=== PATIENT | male | born 1955 | race African-American/Black ===

== ENCOUNTER 2016-08-01 13:06 | Outpatient (CLI) | payer OTHER, MEDICAID ==
[2016-06-24 04:42] VITALS: BP 150/59
== END 2016-08-01 13:07 ==
LOC: CARD 13:06
PROVIDERS: ATTEND Internal Medicine Cardiovascular Disease
DX: I27.2 Other secondary pulmonary hypertension (principal)
CPT/HCPCS: G0463

== ENCOUNTER 2016-08-28 21:52 | Emergency (ER) | payer OTHER ==
[2016-08-28 22:13] VITALS: BP 131/74
[2016-08-28] MEDS ORDERED: FLUTICASONE PROPIONATE 120 SPRAY/16 GR BOTTLE NS ONE (22:36)
[2016-08-28] MEDS: AZITHROMYCIN 250 MG TABLET PO ONE (22:37)
--- NOTE | 2016-08-28 22:43 | ED Physician Documentation ---
General Adult - HISTORIAN Historian: patient - HPI Stated Complaint: nasal congestion, cough Chief Complaint: General Adult Onset: days ago (3) Timing: still present Severity: moderate Further Comments: yes (Pt is a 61 yo male) - ROS CONST: other (malaise) EYES/ENT: nasal drainage, other (maxillary sinus pain, pressure) CVS/RESP: cough GI/: none MS/SKIN/LYMPH: none - PAST HX Past History: hypertension, other (HLD) Other History: diabetes Type 2, other (BINA) Allergies/Adverse Reactions: Allergies Allergy/AdvReac Type Severity Reaction Status Date / Time amoxicillin Allergy Verified 08/28/16 22:06 Home Medications: Ambulatory Orders Medication Instructions Recorded Aspirin [Jaky] 81 mg PO DAILY 06/14/16 Lisinopril/Hydrochlorothiazide 2 tab PO DAILY 06/14/16 [Zestoretic] Metformin HCl [Glucophage] 1,000 tab PO BID 06/14/16 Zolpidem Tartrate [Ambien] 10 mg PO DAILY 06/14/16 amLODIPine BESYLATE [Norvasc] 5 mg PO DAILY 06/14/16 gliPIZIDE [Glucotrol] 10 mg PO BID 06/14/16 Trazodone HCl [Trazodone HCl] 100 mg PO HS 06/24/16 Azithromycin [Zithromax] 250 mg PO DAILY #5 tablet 08/28/16 - SOCIAL HX Smoking History: cigarettes - FAMILY HX Family History: No - VITAL SIGNS Vital Signs: Vital Signs Temp Pulse Resp BP Pulse Ox 98.8 F 66 21 131/74 97 08/28/16 22:08 08/28/16 22:08 08/28/16 22:08 08/28/16 22:08 08/28/16 22:08 - REVIEWED ASSESSMENTS Nursing Assessment Reviewed: Yes Vitals Reviewed: Yes Progress - Progress Progress: Rx Azithromycin 250 mg. Take one tablet by mouth once daily for 5 days. Flonase (Fluticasone). One spray in each nostril twice daily. Maximum 2 sprays per nostril per day. Nasal washes, twice daily as tolerated. ED Results Lab/Radiology - Orders Orders: ED Orders Category Date Time Status Azithromycin [Zithromax] Med 08/28/16 22:26 Discontinued 500 mg PO NOW ONE Fluticasone Propionate [Flonase Nasal [place]] Med 08/29/16 09:00 Ordered 1 spray NS DAILY General Adult Physical Exam - PHYSICAL EXAM GENERAL APPEARANCE: mild distress EENT: eye inspection normal, pharynx normal, TM's nml, purulent nasal drainage NECK: normal inspection, supple RESPIRATORY: no resp distress, chest non-tender, other (cough) CVS: reg rate & rhythm, heart sounds normal BACK: normal inspection SKIN: warm/dry, normal color EXTREMITIES: non-tender, normal range of motion, no evidence of injury NEURO: oriented X3 Discharge Clincal Impression: Sinusitis Qualifiers: Sinusitis location: maxillary Chronicity: acute Recurrence: non-recurrent Qualified Code(s): J01.00 - Acute maxillary sinusitis, unspecified Prescriptions: Azithromycin [Zithromax] 250 mg PO DAILY #5 tablet Referrals: Lila Ramires FNP [Primary Care Provider] - Additional Instructions: Rx Azithromycin 250 mg. Take one tablet by mouth once daily for 5 days. Flonase (Fluticasone). One spray in each nostril twice daily. Maximum 2 sprays per nostril per day. Nasal washes, twice daily as tolerated. Home Medications: Ambulatory Orders Aspirin [Jaky] 81 mg PO DAILY 06/14/16 Lisinopril/Hydrochlorothiazide [Zestoretic] 2 tab PO DAILY 06/14/16 Metformin HCl [Glucophage] 1,000 tab PO BID 06/14/16 Zolpidem Tartrate [Ambien] 10 mg PO DAILY 06/14/16 amLODIPine BESYLATE [Norvasc] 5 mg PO DAILY 06/14/16 gliPIZIDE [Glucotrol] 10 mg PO BID 06/14/16 Trazodone HCl [Trazodone HCl] 100 mg PO HS 06/24/16 Azithromycin [Zithromax] 250 mg PO DAILY #5 tablet 08/28/16 Condition: Good Disposition: 01 HOME, SELF-CARE Decision to Admit: NO Decision Time: 22:43
[2016-08-29] MEDS ORDERED: FLUTICASONE PROPIONATE 120 SPRAY/16 GR BOTTLE NS SCH (09:00)
== END 2016-08-28 22:52 | disposition home or self-care (01) ==
LOC: ED 21:52
DX: J01.00 Acute maxillary sinusitis, unspecified (principal)
CPT/HCPCS: 99282; 99283

== ENCOUNTER 2016-08-30 08:57 | Outpatient (CLI) | payer OTHER, MEDICAID | END 2016-08-30 09:00 | LOC: POD 08:57 | PROVIDERS: ATTEND Podiatrist Public Medicine | DX: E11.9 Type 2 diabetes mellitus without complications (principal); B35.1 Tinea unguium; L60.0 Ingrowing nail; L84 Corns and callosities; M79.674 Pain in right toe(s); M79.675 Pain in left toe(s) | CPT/HCPCS: 11721; G0463 ==

== ENCOUNTER 2016-09-24 07:01 | Emergency (ER) | payer OTHER, MEDICAID ==
[2016-09-24 07:22] VITALS: BP 153/66
[2016-09-24] MEDS: traMADol HCL 50 MG TABLET PO ONE (07:33)
--- NOTE | 2016-09-24 07:39 | ED Physician Documentation ---
Neck Injury/Pain - HISTORIAN Historian: patient - HPI Stated Complaint: muscle pain Chief Complaint: Neck Pain Additional Information: pt h as reccurrent torticollis onset this time approx 4 days ago-hurts tp ;turn head neck to lt. pain ext along trapezius muscle to lt shoulder. lt shoulder joint seems to be spared. bs htn satis control Onset: days ago (4-5) Duration: continues in ED Context: turning, bending Where: home Other Injuries: neck, head, back Severity: moderate Quality: similar- prior back pain. denies: burning, sharp Associated Symptoms: denies: fever, chills Exacerbated By: movement of trunk, movement of neck Relieved By: remaining still - ROS NEURO/PSYCH: denies: difficulty with speech EYES/ENT: none. denies: problems with vision CVS/RESP: none. denies: chest pain, shortness of breath CONST: no problems GI/: denies: nausea, vomiting MS/SKIN/LYMPH: none - PAST HX Past History: neck pain, other (restless legs syndrome [place]) Cardiac Risk Factors: diabetes Type 2, hypertension Surgeries/Procedures: cholecystectomy Allergies/Adverse Reactions: Allergies Allergy/AdvReac Type Severity Reaction Status Date / Time amoxicillin Allergy Verified 09/24/16 07:11 Home Medications: Ambulatory Orders Medication Instructions Recorded Aspirin [Jaky] 81 mg PO DAILY 06/14/16 Lisinopril/Hydrochlorothiazide 2 tab PO DAILY 06/14/16 [Zestoretic] Metformin HCl [Glucophage] 1,000 tab PO BID 06/14/16 Zolpidem Tartrate [Ambien] 10 mg PO DAILY 06/14/16 amLODIPine BESYLATE [Norvasc] 5 mg PO DAILY 06/14/16 gliPIZIDE [Glucotrol] 10 mg PO BID 06/14/16 Trazodone HCl [Trazodone HCl] 100 mg PO HS 06/24/16 - SOCIAL HX Smoking History: cigarettes, less than 1 pack/day Alcohol Use: none Drug Use: none - FAMILY HX Family History: no significant history - VITAL SIGNS Vital Signs: Vital Signs Temp Pulse Resp BP Pulse Ox 98.2 F 55 L 22 153/66 99 09/24/16 07:14 09/24/16 07:14 09/24/16 07:14 09/24/16 07:14 09/24/16 07:14 - REVIEWED ASSESSMENT Nursing Assessment Reviewed: Yes Vitals Reviewed: Yes ED Results Lab/Radiology - Orders Orders: ED Orders Category Date Time Status traMADol HCL [Ultram] Med 09/24/16 07:29 Discontinued 100 mg PO NOW ONE Neck Injury/Pain - Physical Exam General Appearance: mild distress EENT: nml ENT inspection. No: scleral icterus, pale conjunctivae Neck: thyroid nml, muscle spasm, decreased ROM. No: painless ROM, lymphadenopathy, thyromegaly, subcutaneous emphysema Nexus Criteria: Nexus criteria neg. No: midline tenderness, distracting injury Back: CVA tenderness, muscle spasm (upper yaneth oin lt) Respiratory: chest non-tender, breath sounds nml CVS: heart sounds nml Abdomen: non-tender Skin: warm/dry. No: normal color, cyanosis, diaphoresis Extremities: non-tender, normal range of motion Neuro/Psych: oriented x3, sensation nml, motor nml, mood/affect nml Discharge Clincal Impression: Acute torticollis, diabetes htn recurrent torticollis Additional Instructions: home hmp f/ w/pcp Home Medications: Ambulatory Orders Aspirin [Jaky] 81 mg PO DAILY 06/14/16 Lisinopril/Hydrochlorothiazide [Zestoretic] 2 tab PO DAILY 06/14/16 Metformin HCl [Glucophage] 1,000 tab PO BID 06/14/16 Zolpidem Tartrate [Ambien] 10 mg PO DAILY 06/14/16 amLODIPine BESYLATE [Norvasc] 5 mg PO DAILY 06/14/16 gliPIZIDE [Glucotrol] 10 mg PO BID 06/14/16 Trazodone HCl [Trazodone HCl] 100 mg PO HS 06/24/16 Condition: Good Disposition: 01 HOME, SELF-CARE Decision to Admit: NO Decision Time: 07:45
== END 2016-09-24 07:39 | disposition home or self-care (01) ==
LOC: ED 07:01
DX: M43.6 Torticollis (principal); E11.9 Type 2 diabetes mellitus without complications; I10 Essential (primary) hypertension
CPT/HCPCS: 99283

== ENCOUNTER 2016-11-28 11:22 | Emergency (ER) | payer OTHER ==
--- NOTE | 2016-11-28 11:36 | ED Physician Documentation ---
Lower Extremity Problem - HISTORIAN Historian: patient - HPI Chief Complaint: Lower Extremity Problem Location of Injury: L hip Onset: other (for months) Timing: still present, worse Duration: constant Recent Injury: No (no precipitating factor noted) Severity: moderate Quality: pain, tingling (back of thigh and calf area) Exacerbated By: movement (walking to long) Relieved By: nothing Associated Symptoms: denies: chest pain, shortness of breath, rapid heart rate Further Comments: yes (Patient has had several month history or progressing left hip/leg pain. Has ssen PCP and given diclofencac. Does not seem to be helping much.) - ROS CONST: no problems - PAST HX Past History: other (see below) Other History: hypertension, diabetes Type 2 Surgeries/Procedures: cholecystectomy, other (tracheostomy, ) Allergies/Adverse Reactions: Allergies Allergy/AdvReac Type Severity Reaction Status Date / Time amoxicillin Allergy Verified 11/28/16 11:42 Home Medications: Ambulatory Orders Medication Instructions Recorded Aspirin [Jaky] 81 mg PO DAILY 06/14/16 Metformin HCl [Glucophage] 1,000 tab PO BID 06/14/16 Zolpidem Tartrate [Ambien] 10 mg PO DAILY 06/14/16 amLODIPine BESYLATE [Norvasc] 5 mg PO DAILY 06/14/16 gliPIZIDE [Glucotrol] 10 mg PO BID 06/14/16 Trazodone HCl [Trazodone HCl] 100 mg PO HS 06/24/16 traMADol HCL [Ultram] 50 mg PO Q6H PRN #20 tablet 11/28/16 - SOCIAL HX Smoking History: less than 1 pack/day (1/2 pack per day) Alcohol Use: none Drug Use: none - FAMILY HX Family History: other (DM, HTN) - VITAL SIGNS Vital Signs: Vital Signs Temp Pulse Resp BP Pulse Ox 98.4 F 83 16 158/73 98 11/28/16 11:35 11/28/16 11:35 11/28/16 11:35 11/28/16 11:35 11/28/16 11:35 - REVIEWED ASSESSMENTS Nursing Assessment Reviewed: Yes Vitals Reviewed: Yes ED Results Lab/Radiology - Radiology Radiology Impressions: Name: EMIGDIO TERAN Date: November 28, 2016 12:08:04 PM CDT Modality Type: CR Gender: M Description: PELVIS : 51 Institution: [facility] Physician JOSE NIX - JACKIE Left hip -two views CLINICAL HISTORY: Increasing pain in the left hip. FINDINGS: Examination left hip in AP and frog-leg lateral views demonstrates degenerative changes with narrowing of the joint space and osteophyte formation. There is slight remodeling of the femoral head. There is no fracture and no lytic or blastic lesion. IMPRESSION: Degenerative changes. Electronically signed on November 28, 2016 12:32:34 PM CDT by: Manpreet Waters - Orders Orders: ED Orders Category Date Time Status LT HIP 2VIEW COMPLETE [RAD] Routine Exams 11/28/16 Ordered Ketorolac Tromethamine [Toradol] Med 11/28/16 11:45 Discontinued 60 mg IM NOW ONE Lower Extremity Problem - EXAM General Appearance: moderate distress Hips: right hip: non-tender, normal inspection, normal range of motion, no evidence of injury, left hip: pain (left lateral hip), soft tissue tenderness, N /A: deformity (none), limited range of motion (none), swelling (none) Legs: bilateral: non-tender, normal inspection, normal range of motion, no evidence of injury Knees: bilateral: non-tender, normal inspection, normal range of motion, no evidence of injury RESPIRATORY: no resp distress, chest non-tender, breath sounds normal. No: wheezes, rales, rhonchi CVS: reg rate & rhythm, heart sounds normal, equal pulses JOINT: Nml gait/weight bearing, painful (pain with external rotation of ) NEURO/PSYCH: oriented X3, CN's nml as tested, motor nml, sensation nml, mood/ affect nml SKIN: warm/dry, normal color BACK: normal inspection, no CVA tenderness Discharge Clincal Impression: Arthritis of left hip Prescriptions: traMADol HCL [Ultram] 50 mg PO Q6H PRN #20 tablet PRN Reason: Pain Referrals: Lila Ramires FNP [Primary Care Provider] - 2 Days Additional Instructions: Continue taking your Diclofenac. Follow up with your primary care provider for further treatment for your hip pain. Try using a warm compress to the area. Return to the ED as needed. Home Medications: Ambulatory Orders Aspirin [Jaky] 81 mg PO DAILY 06/14/16 Metformin HCl [Glucophage] 1,000 tab PO BID 06/14/16 Zolpidem Tartrate [Ambien] 10 mg PO DAILY 06/14/16 amLODIPine BESYLATE [Norvasc] 5 mg PO DAILY 06/14/16 gliPIZIDE [Glucotrol] 10 mg PO BID 06/14/16 Trazodone HCl [Trazodone HCl] 100 mg PO HS 06/24/16 traMADol HCL [Ultram] 50 mg PO Q6H PRN #20 tablet 11/28/16 Condition: Stable Disposition: 01 HOME, SELF-CARE Decision to Admit: NO Date of Decison to Admit: 11/28/16 Decision Time: 11:54
[2016-11-28] MEDS ORDERED: KETOROLAC TROMETHAMINE 60 MG/2 ML VIAL IM ONE (11:45)
[2016-11-28 13:16] VITALS: BP 150/71
--- NOTE | 2016-11-28 15:24 | Diagnostic Imaging Report ---
[facility] [address] [facility].[address] [address] Report Submission Date: November 28, 2016 12:32:34 PM CDT Patient Study Name: EMIGDIO TERAN Date: November 28, 2016 12:08:04 PM CDT Modality Type: CR Gender: M Description: PELVIS : 51 Institution: [facility] Physician JOSE NIX - JACKIE Left hip -two views CLINICAL HISTORY: Increasing pain in the left hip. FINDINGS: Examination left hip in AP and frog-leg lateral views demonstrates degenerative changes with narrowing of the joint space and osteophyte formation. There is slight remodeling of the femoral head. There is no fracture and no lytic or blastic lesion. IMPRESSION: Degenerative changes. Electronically signed on November 28, 2016 12:32:34 PM CDT by: Manpreet QUIGLEY
== END 2016-11-28 13:05 | disposition home or self-care (01) ==
LOC: ED 11:22
DX: M12.552 Traumatic arthropathy, left hip (principal)
CPT/HCPCS: 73502; J1885; 96372; 99283

== ENCOUNTER 2017-01-03 08:27 | Outpatient (CLI) | payer OTHER | END 2017-01-03 08:30 | LOC: POD 08:27 | PROVIDERS: ATTEND Podiatrist Public Medicine | DX: B35.1 Tinea unguium (principal); E11.9 Type 2 diabetes mellitus without complications; L84 Corns and callosities; L60.0 Ingrowing nail; M79.671 Pain in right foot; M79.674 Pain in right toe(s); M79.675 Pain in left toe(s) | CPT/HCPCS: 10060; 11721; G0463 ==

== ENCOUNTER 2017-01-05 09:04 | Outpatient (CLI) | payer OTHER ==
[2017-01-05 09:54] LABS: eGFR (African) 56; eGFR (Non-African) 47
== END 2017-01-05 09:38 ==
LOC: LAB 09:04
PROVIDERS: ATTEND Nurse Practitioner
DX: E11.9 Type 2 diabetes mellitus without complications (principal); G25.81 Restless legs syndrome; I10 Essential (primary) hypertension; M25.552 Pain in left hip; Z12.12 Encounter for screening for malignant neoplasm of rectum
CPT/HCPCS: 36415; 80053; 82043; 83036; 84153

== ENCOUNTER 2017-04-04 08:58 | Outpatient (CLI) | payer OTHER | END 2017-04-04 09:00 | LOC: POD 08:58 | PROVIDERS: ATTEND Podiatrist Public Medicine | DX: B35.1 Tinea unguium (principal); M79.674 Pain in right toe(s); M79.675 Pain in left toe(s); M79.671 Pain in right foot; L60.0 Ingrowing nail; E11.9 Type 2 diabetes mellitus without complications; L84 Corns and callosities | CPT/HCPCS: 11056; 11721; G0463 ==

== ENCOUNTER 2017-04-23 09:02 | Outpatient (CLI) | payer OTHER ==
[2017-04-23 09:48] LABS: eGFR (African) > 60; eGFR (Non-African) 54
== END 2017-04-23 09:03 ==
LOC: LAB 09:02
PROVIDERS: ATTEND Nurse Practitioner
DX: E11.9 Type 2 diabetes mellitus without complications (principal); G47.33 Obstructive sleep apnea (adult) (pediatric); I10 Essential (primary) hypertension; I27.2 Other secondary pulmonary hypertension; N18.9 Chronic kidney disease, unspecified; R97.20 Elevated prostate specific antigen [PSA]
CPT/HCPCS: 36415; 80048; 82043; 83036; G0103

== ENCOUNTER 2017-06-15 01:47 | Emergency (ER) | payer OTHER ==
[2017-06-15 02:00] VITALS: BP 130/52
--- NOTE | 2017-06-15 02:06 | ED Physician Documentation ---
Lower Extremity Problem - HISTORIAN Historian: patient - HPI Stated Complaint: Lt lateral foot pain for 4-5 days Chief Complaint: Lower Extremity Problem Location of Injury: R foot Onset: days ago (4-5 days) Timing: still present Recent Injury: No Quality: pain. denies: swelling, numbness Exacerbated By: walking Relieved By: nothing Further Comments: yes - ROS CONST: no problems - PAST HX Past History: other (DM, HTN, insomnia) PE Risk Factors: hypertension Allergies/Adverse Reactions: Allergies Allergy/AdvReac Type Severity Reaction Status Date / Time amoxicillin Allergy Verified 06/15/17 02:02 Home Medications: Ambulatory Orders Medication Instructions Recorded Aspirin [Jaky] 81 mg PO DAILY 06/14/16 Metformin HCl [Glucophage] 1,000 tab PO BID 06/14/16 Zolpidem Tartrate [Ambien] 10 mg PO DAILY 06/14/16 amLODIPine BESYLATE [Norvasc] 5 mg PO DAILY 06/14/16 gliPIZIDE [Glucotrol] 10 mg PO BID 06/14/16 Trazodone HCl [Trazodone HCl] 100 mg PO HS 06/24/16 Acetaminophen with Codeine 1 each PO Q4 PRN #20 tablet 06/15/17 [Acetaminophen-Cod #3 Tablet] Ropinirole HCl [Ropinirole HCl] 3 mg PO TID 06/15/17 - SOCIAL HX Smoking History: less than 1 pack/day (10 cirgarettes a day) Alcohol Use: none Drug Use: none - FAMILY HX Family History: no significant history - VITAL SIGNS Vital Signs: Vital Signs Temp Pulse Resp BP Pulse Ox 66 18 130/52 96 06/15/17 01:47 06/15/17 01:47 06/15/17 01:47 06/15/17 01:47 - REVIEWED ASSESSMENTS Nursing Assessment Reviewed: Yes Vitals Reviewed: Yes Progress - Results/Orders Results/Orders: 02:47 patient states that the pain has not changed much ED Results Lab/Radiology - Lab Results Lab Results: Lab Results 06/15/17 06/15/17 02:55 02:55 WBC 7.70 K/ul K/ul (4.00-12.00) RBC 4.45 M/ul M/ul (3.90-5.20) Hgb 12.5 g/dL g/dL (12.0-18.0) Hct 41.2 % % (37.0-53.0) MCV 92.7 fl fl (80.0-100.0) MCH 28.2 pg pg (28.0-34.0) MCHC 30.4 g/dL g/dL (30.0-36.0) RDW 15.1 % H % (11.3-14.3) Plt Count 264 K/mm3 K/mm3 (130-400) Neut % (Auto) 56.4 % % (39.0-79.0) Lymph % (Auto) 34.5 % % (16.0-50.0) [place] % (Auto) 5.1 % % (0.0-11.0) Eos % (Auto) 1.9 % % (0.0-6.8) Baso % (Auto) 0.3 (0.0-1.5) Neut # (Auto) 4.4 # k/uL # k/uL (1.4-7.7) Lymph # (Auto) 2.7 # k/uL # k/uL (0.6-4.0) [place] # (Auto) 0.4 # k/uL # k/uL (0.0-0.9) Eos # (Auto) 0.2 # k/uL # k/uL (0.0-0.6) Baso # (Auto) 0.0 # k/uL # k/uL (0.0-0.5) Reactive Lymphs % 1.8 % % (0.0-5.0) Reactive Lymphs # 0.1 # k/uL # k/uL (0.0-0.8) Uric Acid 6.4 mg/dL mg/dL (3.5-8.5) - Orders Orders: ED Orders Category Date Time Status CBC/PLATELET/DIFF Routine Lab 06/15/17 02:55 Completed URIC ACID Routine Lab 06/15/17 02:55 Completed Acetaminophen with Codeine [Tylenol #3] Med 06/15/17 03:17 Ordered 4 each PO Q4 PRN Ketorolac Tromethamine [Toradol] Med 06/15/17 02:13 Discontinued 60 mg .ROUTE .STK-MED ONE Ketorolac Tromethamine [Toradol] Med 06/15/17 02:11 Discontinued 60 mg IM NOW ONE Lower Extremity Problem - EXAM General Appearance: mild distress Hips: right hip: soft tissue tenderness, left hip: non-tender, bilateral hip: normal inspection, normal range of motion, no evidence of injury Legs: bilateral: non-tender, normal inspection, normal range of motion, no evidence of injury Knees: bilateral: non-tender, normal inspection, normal range of motion, no evidence of injury Ankle: bilateral: non-tender, normal inspection, normal range of motion, no evidence of injury Foot: right foot: non-tender, normal inspection, left foot: nodule (over ), soft tissue tenderness (over over head ofhead of 5th metatarsal), swelling ( minimal ), bilateral foot: normal range of motion, no evidence of injury, N/A: deformity (none) Neuro/Tendon: normal sensation, normal motor functions, normal tendon functions RESPIRATORY: no resp distress, chest non-tender, breath sounds normal CVS: reg rate & rhythm, heart sounds normal, equal pulses NEURO/PSYCH: mood/affect nml, cognition normal SKIN: warm/dry, normal color Discharge Clincal Impression: Left foot pain Prescriptions: Acetaminophen with Codeine [Acetaminophen-Cod #3 Tablet] 1 each PO Q4 PRN #20 tablet PRN Reason: Pain Referrals: Lila Ramires [employer]ACHINE OPERATOR HELPER [Primary Care Provider] - 2 Days Additional Instructions: Soak foot in some warm Epsom salt twice a day. Take some Aleve 220mg tablets, two tablets twice a day. Take some Tylenol #3 as needed for break through pain. If you continue to have a lot of pain return for a foot x-ray. Condition: Stable Decision to Admit: NO Date of Decison to Admit: 06/15/17 Decision Time: 03:28
[2017-06-15] MEDS ORDERED: KETOROLAC TROMETHAMINE 60 MG/2 ML VIAL IM ONE (02:11)
[2017-06-15] MEDS ORDERED: KETOROLAC TROMETHAMINE 60 MG/2 ML VIAL ONE (02:13)
[2017-06-15 03:06] LABS: BASOPHILS % 0.3 (0.0-1.5); EOSINOPHILS % 1.9 % (0.0-6.8); MEAN CORPUSCULAR HEMOGLOBIN 28.2 pg (28.0-34.0); MEAN CORPUSCULAR VOLUME 92.7 fl (80.0-100.0); MONOCYTES % 5.1 % (0.0-11.0); NEUTROPHILS # 4.4 # k/uL (1.4-7.7)
[2017-06-15] MEDS ORDERED: ACETAMINOPHEN WITH CODEINE 300MG/30MG TABLET PO PRN (03:17)
[2017-06-15] MEDS ORDERED: ACETAMINOPHEN WITH CODEINE 300MG/30MG TABLET PO ONE (03:19)
== END 2017-06-15 03:30 | disposition home or self-care (01) ==
LOC: ED 01:47
DX: M79.672 Pain in left foot (principal)
CPT/HCPCS: 84550; 85025; J1885; 96372; 99283

== ENCOUNTER 2017-06-27 10:07 | Outpatient (CLI) | payer OTHER ==
--- NOTE | 2017-06-27 12:55 | Diagnostic Imaging Report ---
REJI TRACEY [facility] [address] [address] Report Submission Date: Jun 27, 2017 10:48:19 AM EXCHANGE CONSULTANT Patient Study Name: EMIGDIO TERAN Date: Jun 27, 2017 10:14:03 AM EXCHANGE CONSULTANT Modality Type: CR Gender: M Description: LOWER EXTREMITY : 51 Institution: [facility] Physician: REJI TRACEY Examination: Plain film foot History: Discomfort Findings: 3 views of the foot demonstrates mild articular degenerative changes. Fracture deformity base 5th metatarsal. No dislocation. Mild hallux valgus deformity 1st digit. Calcaneal spurs. No soft tissue swelling. Impression: Degenerative changes. Fracture deformity base 5th metatarsal: possibly old - correlate with point of discomfort. Electronically signed on Jun 27, 2017 10:48:19 AM EXCHANGE CONSULTANT by: Efraín QUIGLEY
== END 2017-06-27 10:10 ==
LOC: RAD 10:07
PROVIDERS: ATTEND Pediatrics
DX: M79.672 Pain in left foot (principal)
CPT/HCPCS: 73630

== ENCOUNTER 2017-07-04 08:52 | Outpatient (CLI) | payer OTHER | END 2017-07-04 09:07 | LOC: POD 08:52 | PROVIDERS: ATTEND Podiatrist Public Medicine | DX: E11.9 Type 2 diabetes mellitus without complications (principal); L60.0 Ingrowing nail; M79.671 Pain in right foot; M79.674 Pain in right toe(s); M79.675 Pain in left toe(s); B35.1 Tinea unguium; L84 Corns and callosities | CPT/HCPCS: 11721; G0463 ==

== ENCOUNTER 2017-08-08 10:05 | Emergency (ER) | payer OTHER ==
[2017-08-08 10:33] LABS: BASOPHILS % 0.8 (0.0-1.5); EOSINOPHILS % 1.5 % (0.0-6.8); MONOCYTES % 5.7 % (0.0-11.0); NEUTROPHILS # 3.3 # k/uL (1.4-7.7)
[2017-08-08 10:45] LABS: eGFR (African) > 60; eGFR (Non-African) 54
[2017-08-08] MEDS ORDERED: EPINEPHrine 0.1 MG/ML DISP.SYRIN IVP ONE (11:18)
[2017-08-08] MEDS ORDERED: SODIUM BICARBONATE 50 MEQ/50 ML SYRINGE ONE (11:18)
--- NOTE | 2017-08-08 15:15 | ED Physician Documentation ---
Cardiopulmonary Resuscitation - HPI Chief Complaint: CPR Witnessed Arrest?: Yes CPR Initiated Prior to MD Arrival?: Yes (at [facility]) Further Comments: yes (62 year old male patient brought in via EMS in full arrest. Collasped at [facility] while walking per witness. V-Fib on EMS arrival. Defib x 1; asystole. No IV access, no airway, no autopulse. BVM in use.) - INITIAL FINDING Mentation: unresponsive Respirations: no respirations Pulse: absent Rhythm: V-Fib (shocked on sceen) - TREATMENT INITIATED [employer] Oxygen: [id number] Defibrillated X: 1 IV Access: No - MEDICATIONS GIVEN [employer] How Many Doses of Epinephrine?: 0 - ROS CONST: denies: none Comment: unable to obtain; patient in full arrest, no family at bedside. - PAST HX Past History: cardiac disease, diabetes Type 2, other (morbid obesity) Allergies/Adverse Reactions: Allergies Allergy/AdvReac Type Severity Reaction Status Date / Time amoxicillin Allergy Verified 06/15/17 02:02 Home Medications: Ambulatory Orders Medication Instructions Recorded Aspirin [Jaky] 81 mg PO DAILY 06/14/16 Metformin HCl [Glucophage] 1,000 tab PO BID 06/14/16 Zolpidem Tartrate [Ambien] 10 mg PO DAILY 06/14/16 amLODIPine BESYLATE [Norvasc] 5 mg PO DAILY 06/14/16 gliPIZIDE [Glucotrol] 10 mg PO BID 06/14/16 Trazodone HCl [Trazodone HCl] 100 mg PO HS 06/24/16 Acetaminophen with Codeine 1 each PO Q4 PRN #20 tablet 06/15/17 [Acetaminophen-Cod #3 Tablet] Ropinirole HCl [Ropinirole HCl] 3 mg PO TID 06/15/17 - SOCIAL HX Smoking History: other (unknown) - FAMILY HX Family History: No (unable to obtain) - VITAL SIGNS Vital Signs: Vital Signs Temp Pulse Resp BP Pulse Ox 130/52 06/15/17 03:41 - REVIEWED ASSESSMENTS Nursing Assessment Reviewed: Yes Vitals Reviewed: Yes Progress - Progress Progress: Patient asystole on arrival. CPR continued. OI placed on arrival to left tibial plateau by EMS; NS started and first epi given. See code sheet for medication times. Excessive amounts of vomit suctioned from oropharynx, attempted oral intubation ; with #3 MAC; continued suctioning of vomit and food particles. Unable to visualize cords. Returned to bagging. Rhythm check at 5 minutes - asystole; continued CPR. 2nd attempt at intubation with #3 straight blade, intubated esophagus, copious amounts of oral fluids. Combi tube placed. No return of rhythm; continuing epi and IV fluids. No family available. 1035 Multiple rounds of epi; IV fluids, and CPR with no ROSC, rhythm remained asystole at all rhythm checks. Pupils 5mm fixed, no response to tactile treatments. Time of 1035. Erp Consultant notified. Family arrived at hospital, updated on patient's condition and events of cardiac arrest. Critical Care Note - Critical Care Note Total Time (mins): 45 (full arrest on arrival) ED Results Lab/Radiology - Lab Results Lab Results: Lab Results 08/08/17 08/08/17 08/08/17 10:15 10:15 10:15 WBC 7.20 K/ul K/ul (4.00-12.00) RBC 4.59 M/ul M/ul (3.90-5.20) Hgb 13.3 g/dL g/dL (12.0-18.0) Hct 44.0 % % (37.0-53.0) MCV 96.0 fl fl (80.0-100.0) MCH 29.0 pg pg (28.0-34.0) MCHC 30.2 g/dL g/dL (30.0-36.0) RDW 14.6 % H % (11.3-14.3) Plt Count 285 K/mm3 K/mm3 (130-400) Neut % (Auto) 45.4 % % (39.0-79.0) Lymph % (Auto) 44.3 % % (16.0-50.0) [place] % (Auto) 5.7 % % (0.0-11.0) Eos % (Auto) 1.5 % % (0.0-6.8) Baso % (Auto) 0.8 (0.0-1.5) Neut # (Auto) 3.3 # k/uL # k/uL (1.4-7.7) Lymph # (Auto) 3.2 # k/uL # k/uL (0.6-4.0) [place] # (Auto) 0.4 # k/uL # k/uL (0.0-0.9) Eos # (Auto) 0.1 # k/uL # k/uL (0.0-0.6) Baso # (Auto) 0.1 # k/uL # k/uL (0.0-0.5) Reactive Lymphs % 2.3 % % (0.0-5.0) Reactive Lymphs # 0.2 # k/uL # k/uL (0.0-0.8) Sodium 142 mmol/L mmol/L (136-145) Potassium 4.6 mmol/L mmol/L (3.5-5.1) Chloride 106 mmol/L mmol/L (98-107) Carbon Dioxide 18 mmol/L L mmol/L (22-30) BUN 11 mg/dL mg/dL (9-20) Creatinine 1.40 mg/dL H mg/dL (0.66-1.25) Est GFR ( Amer) > 60 (60 - ) Est GFR (Non-Af Amer) 54 L (60 - ) Glucose 185 mg/dL H mg/dL (74-106) Calcium 9.4 mg/dL mg/dL (8.4-10.2) Total Bilirubin 0.4 mg/dL mg/dL (0.2-1.3) AST 61 U/L H U/L (15-46) ALT 65 U/L U/L (13-69) Alkaline Phosphatase 58 U/L U/L (38-126) Troponin I < 0.03 ng/mL L ng/mL (0.03-0.06) Total Protein 7.4 g/dL g/dL (6.3-8.2) Albumin 3.8 g/dL g/dL (3.5-5.0) - Orders Orders: ED Orders Category Date Time Status CBC AUTO DIFF Routine Lab 08/08/17 10:15 Completed CMP Routine Lab 08/08/17 10:15 Completed TROPONIN I (cTnI) Routine Lab 08/08/17 10:15 Completed EPINEPHrine [Adrenalin] Med 08/08/17 11:18 Discontinued 0.6 mg IVP .STK-MED ONE Sodium Bicarbonate Med 08/08/17 11:18 Discontinued 100 meq .ROUTE .STK-MED ONE Chest Pain Physical Exam - EXAM General Appearance: other (full arrest) EENT: eye inspection normal, other (5 mm; fixed) Neck: nml inspection, other (short) Respiratory: other (no spontaneous respirations; bagging with 100% BVM) Abdomen: soft, other (hypoactive BS, copious amount of vomit in mouth, morbid obesity) Skin: warm/dry, normal color Neuro: other (unresponsive to verbal, tactile or painful stimuli.) Discharge Clincal Impression: Cardiac arrest Referrals: Lila Ramires FNP [Primary Care Provider] - 2 Days Disposition: 20 Decision to Admit: NO Decision Time: 10:35
== END 2017-08-08 10:35 | disposition expired ==
LOC: ED 10:05
DX: I46.9 Cardiac arrest, cause unspecified (principal)
CPT/HCPCS: 80053; 84484; 85025; 99284; 99291